=== PATIENT | female | born 2000 | race Caucasian/White ===

== ENCOUNTER 2022-12-02 21:28 | Inpatient (IN) ==
[2022-12-02] MEDS ORDERED: LIDOCAINE 1% LOCAL 20 ML VIAL INFIL PRN (22:25)
[2022-12-02] MEDS ORDERED: LACTATED RINGER'S 1,000 ML IV PRN (22:25)
[2022-12-02] MEDS ORDERED: OXYTOCIN 30 UNITS/500 ML BAG IV PRN ×2 (22:25→23:36)
[2022-12-02] MEDS ORDERED: Patient's ALLERGY Info needs ENTERED SCH (22:30)
[2022-12-02 23:07] LABS: Hemoglobin 11.5 g/dl (12.0-16.0); Mean Corpuscular Hemoglobin 31.3 pg (25.0-34.0); Mean Corpuscular Hgb Conc 35.9 g/dL (32.0-36.0); Mean Corpuscular Volume 87.2 fL (80.0-100.0); Mean Platelet Volume 10.2 fL (9.4-12.4); Platelet Count 310 K/uL (130-400); RDW Coefficient of Variation 13.7 % (11.5-14.5); RDW Standard Deviation 43.5 fL (36.4-46.3); Red Blood Count 3.67 M/uL (4.20-5.40)
--- NOTE | 2022-12-02 23:19 | Progress Note ---
Date of Service December 02, 2022 Assessment & Plan (1) : Plan: at term Met pt and spouse SROM; clear FHR; CAT1 Ctx; 1-3 VE; 6-7/100/0 anticipate VD Admission and Anticipated Discharge Date Admission Date: December 02, 2022 Results & Data ([facility]) Vital Signs (Past 12 Hours) Vital Signs Temp Resp 12/02/22 21:40 36.5 C 16
[2022-12-02] MEDS ORDERED: OXYTOCIN 30 UNITS/500ML NSS IV ONE (23:33)
[2022-12-02] MEDS ORDERED: miSOPROStoL 200 MCG TAB ONE (23:33)
[2022-12-02] MEDS ORDERED: METHYLERGONOVINE MALEATE 0.2 MG/ML AMP ONE (23:33)
[2022-12-02] MEDS ORDERED: BENZOCAINE 20% AER SPR 82.5 GM CAN EXT PRN (23:36)
[2022-12-02] MEDS ORDERED: IBUPROFEN 600 MG TAB PO PRN (23:36)
[2022-12-02] MEDS ORDERED: METHYLERGONOVINE MALEATE 0.2 MG/ML AMP IM ONE (23:36)
[2022-12-02] MEDS ORDERED: miSOPROStoL 200 MCG TAB PR ONE (23:36)
[2022-12-02] MEDS ORDERED: DIPHTHERIA/TETANUS/PERTUSSIS 0.5mL SYR/VIAL (Age 7+yrs) IM ONE (23:36)
[2022-12-02] MEDS ORDERED: HYDROCORTISONE ACETATE 25 MG SUPP PR PRN (23:36)
[2022-12-02] MEDS ORDERED: ACETAMINOPHEN 325 MG TAB PO PRN (23:36)
[2022-12-02] MEDS ORDERED: bisacodyL 10 MG SUPP PR PRN (23:36)
--- NOTE | 2022-12-02 23:56 | Delivery Summary ---
DELIVERY NOTE: The patient delivered a live infant female in left occiput anterior presentation. Th ere was a body cord. was delivered and placed on mother's abdomen. Delayed cord clamp was pe rformed. Cord blood was obtained. The 's weight and Apgars are in the pediatric record. Igor turcios was spontaneously delivered. Inspection of the placenta shows normal looking placenta with 3-ve ssel cord. Inspection of the perineum shows no laceration or tears. All instruments were removed from the vagina. Estimated blood loss was 400 mL. There was good hemost asis and the patient is stable to recovery. Job ID: [id number]
[2022-12-03 06:28] LABS: Hematocrit (blood only) 29.7 % (37.0-47.0); Hemoglobin 10.7 g/dl (12.0-16.0); Mean Corpuscular Hemoglobin 31.5 pg (25.0-34.0); Mean Corpuscular Volume 87.4 fL (80.0-100.0); Mean Platelet Volume 10.1 fL (9.4-12.4); Platelet Count 263 K/uL (130-400); RDW Coefficient of Variation 13.5 % (11.5-14.5); RDW Standard Deviation 42.7 fL (36.4-46.3); White Blood Count 13.37 K/ul (4.8-10.8)
[2022-12-03] MEDS ORDERED: PRENATAL VITAMIN 1 TAB PO SCH (08:00)
[2022-12-03] MEDS: DOCUSATE SODIUM 100 MG CAP PO SCH ×2 (08:59→19:19)
--- NOTE | 2022-12-03 10:42 | Obstetrical Progress Note ---
Date of Service December 03, 2022 Assessment & Plan (1) : Pt doing well' No complaints d/c home with instructions Results & Data ([facility]) Vital Signs (Past 12 Hours) Vital Signs Temp Pulse Pulse Resp BP BP Pulse Ox 12/03/22 08:15 36.4 C L 64 18 116/75 12/03/22 05:27 36.6 C 78 18 120/77 99 12/03/22 01:35 18 12/03/22 01:05 16 12/03/22 00:35 16 12/03/22 00:20 16 12/03/22 00:05 18 12/02/22 23:50 16 12/02/22 23:35 36.4 C L 18 12/03/22 01:43 75 127/66 12/03/22 01:21 68 123/69 12/03/22 01:06 66 135/74 12/03/22 00:51 63 127/74 12/03/22 00:36 62 129/74 12/03/22 00:21 70 145/79 H 12/03/22 00:08 77 139/65 12/02/22 23:51 73 133/61 12/02/22 23:37 66 132/73 O2 Del Method 12/03/22 08:15 12/03/22 05:27 Room Air 12/03/22 01:35 12/03/22 01:05 12/03/22 00:35 12/03/22 00:20 12/03/22 00:05 12/02/22 23:50 12/02/22 23:35 12/03/22 01:43 12/03/22 01:21 12/03/22 01:06 12/03/22 00:51 12/03/22 00:36 12/03/22 00:21 12/03/22 00:08 12/02/22 23:51 12/02/22 23:37
[2022-12-03] MEDS ORDERED: bisacodyL 5 MG TABEC PO SCH (20:00)
--- NOTE | 2022-12-08 13:07 | Coding Query ---
CODING QUERY To promote full compliance with coding requirements relating to patient care, provider participation is requested in all cases of medical records coder uncertainty. Please assist us with the question(s) below: Coding Question(s): Please document weeks of gestation Physician's Response(s): 40.4 weeks Thank you Emmynicolette Landon Principal Diagnosis: "that condition established after study, to be chiefly responsible for occasioning the admission of the patient to the hospital for care." Co-Existing Principal Diagnosis: "when two or more diagnoses equally meet the criteria for principal diagnosis as determined by the circumstances of admission, diagnostic work up, and/or therapy provided, and the Alphabetic Index, Tabular List, or another coding guideline does not provide sequencing direction, any one of the diagnoses may be sequenced first." "When the physician has documented what appears to be a current diagnosis in the body of the record, but has not included the diagnosis in the final diagnostic statement, the physician should be asked whether the diagnosis should be added." (Source [facility] 2 QTR90. p3-4) FÉLIX
== END 2022-12-04 00:41 | disposition home or self-care (01) | DRG 807 ==
LOC: OPB 21:28 → 4S1 21:31 → 4E2 12-03 02:11